=== PATIENT | female | born 1985 | race Caucasian/White ===

== ENCOUNTER 2016-06-02 05:38 | Emergency (ER) | payer SELFPAY ==
[~2016-06-02] VITALS: Ht 165.1 cm; Wt 75.7 kg
[2016-06-02 05:59] LABS: ADD MIUA? YES; BILIRUBIN NEGATIVE; BLOOD MODERATE; COLOR YELLOW ((YELLOW)); GLUCOSE (STRIP) NEGATIVE; KETONES NEGATIVE; LEUKOCYTES NEGATIVE; NITRITE NEGATIVE; PROTEIN (STRIP) NEGATIVE; SPECIFIC GRAVITY 1.021 (1.000-1.030); UROBILINOGEN 0.2 MG/DL (0.2-1.0)
[2016-06-02 06:11] LABS: BACTERIA NONE SEEN /HPF; EPITHELIAL CELLS 2+ /HPF; MUCUS TRACE /LPF; RED BLOOD CELLS 0-5 /HPF (0-5); UCUL ADDED? NO; WHITE BLOOD CELLS 0-5 /HPF (0-5)
[2016-06-02 06:16] LABS: HEMATOCRIT 42.4 % (36.0-46.0); MCH 26.1 PG (29.0-34.0); MCHC 31.4 G/DL (30.0-36.0); MCV 83.3 FL (83-99); MEAN PLAT.VOLUME 8.6 uM^3 (9.5-12.4); PLATELET COUNT 344 K/uL (156-360); RBC DIS.WIDTH-CV 14.7 % (11.8-14.6); RBC DIS.WIDTH-SD 44.8 % (39-53); RED BLOOD COUNT 5.09 M/uL (3.80-5.20); WHITE BLOOD COUNT 11.5 K/uL (4.1-10.2)
[2016-06-02 06:27] LABS: CHLORIDE 108 mEq/L (99-109); POTASSIUM 3.3 mEq/L (3.7-5.4); SODIUM 141 mEq/L (136-147)
[2016-06-02 06:30] LABS: GLUCOSE 97 mg/dL (70-99)
[2016-06-02 06:31] LABS: ANION GAP 9 MEQ/L (2-14)
[2016-06-02 06:32] LABS: TOTAL BILIRUBIN 0.2 mg/dL (0.0-1.0)
[2016-06-02 06:33] LABS: ALKALINE PHOSPHATASE 67 IU/L (3-129)
[2016-06-02 06:34] LABS: UREA NITROGEN (BUN) 13 mg/dL (9-23)
[2016-06-02 06:42] LABS: QUANTITATIVE HCG < 4.0 MIU/ML
[2016-06-02 06:43] LABS: GFR ESTIMATE (CALCULATED) > 59 mL/min/
[2016-06-02] MEDS ORDERED: TYLENOL WITH C1 EACH PO (09:38)
[2016-06-02 09:57] VITALS: BP 115/75
== END 2016-06-02 09:58 | disposition home or self-care (01) ==
LOC: EME 05:38
DX: R10.30 Lower abdominal pain, unspecified (principal); R14.0 Abdominal distension (gaseous); R11.0 Nausea; R10.813 Right lower quadrant abdominal tenderness; F17.200 Nicotine dependence, unspecified, uncomplicated
CPT/HCPCS: 74177; 80053; 81003; 84702; 85027; 99281; 99285; J1885; J7030

== ENCOUNTER 2016-09-25 13:27 | Emergency (ER) | payer SELFPAY ==
[~2016-09-25] VITALS: Ht 165.1 cm; Wt 74.8 kg
[~2016-09-25 13:27] MED LIST: TYLENOL WITH C1 EACH PO
[2016-09-25] MEDS ORDERED: TRAMADOL HCL50 MG PO (14:59)
[2016-09-25] MEDS ORDERED: MOTRIN800 MG PO (14:59)
[2016-09-25] MEDS ORDERED: FLEXERIL10 MG PO (14:59)
[2016-09-25 15:10] VITALS: BP 137/86
== END 2016-09-25 15:10 | disposition home or self-care (01) ==
LOC: EME 13:27
DX: M54.5 Low back pain (principal); M62.830 Muscle spasm of back; J45.909 Unspecified asthma, uncomplicated; F17.200 Nicotine dependence, unspecified, uncomplicated
CPT/HCPCS: 99281; 99284; J1885